=== PATIENT | male | born 1985 | race Caucasian/White ===

== ENCOUNTER → 2023-11-09 07:38 | Outpatient (REF) | payer BC, SELFPAY | LOC: RCS 07:38 | PROVIDERS: ATTENDING PHYSICIAN Internal Medicine Cardiovascular Disease; FAMILY PHYSICIAN Family Medicine | DX: R55 Syncope and collapse (principal) | CPT/HCPCS: 93017 ==

== ENCOUNTER → 2023-11-20 09:00 | Outpatient (REF) | payer BC, SELFPAY | LOC: DHSLP 09:00 | PROVIDERS: ATTENDING PHYSICIAN Internal Medicine Cardiovascular Disease | DX: G47.19 Other hypersomnia (principal); R06.83 Snoring; G47.8 Other sleep disorders | CPT/HCPCS: 95800 ==